=== PATIENT | male | born 1990 | race Two or more races ===

== ENCOUNTER 2024-04-30 21:46 | Emergency (ER) | payer SELFPAY ==
[~2024-04-30] VITALS: Ht 193 cm; Wt 153.4 kg
[2024-04-30 22:02] VITALS: TEMP 99.8
[2024-04-30 23:04] LABS: COVID19 ANTIGEN SOFIA FIA NEGATIVE (NEGATIVE); Rapid Influenza A Negative (Negative); Rapid Influenza B Negative (Negative)
[2024-05-01 00:17] VITALS: BP 125/94; PULSE 86; RESP 20; O2SAT 98
== END 2024-05-01 00:18 | disposition home or self-care (01) ==
LOC: ER 21:46
DX: B34.9 Viral infection, unspecified (principal); I10 Essential (primary) hypertension; Z20.822 Contact with and (suspected) exposure to COVID-19
CPT/HCPCS: 36415; 87426; 87804